=== PATIENT | female | born 1990 | race Caucasian/White ===

== ENCOUNTER 2018-10-21 19:42 | Day surgery (SDC) | payer OTHER ==
[2018-10-21 20:04] VITALS: BMI 33.2
[2018-10-21 20:31] LABS: #Basophils 0.1 thou/uL (0.0-0.2); #Eosinphils 0.1 thou/uL (0.0-0.7); #Lymphocytes 2.3 thou/uL (1.20-3.40); #Monocytes 0.5 thou/uL (0.11-0.59); #Neutrophils 6.5 thou/uL (1.40-6.50); %Basophils 0.9 % (0.0-1.0); %Lymphocytes 24.3 % (21.0-51.0); %Monocytes 5.1 % (0.0-10.0); %Neutrophils 68.8 % (42.0-75.0); Hemoglobin 11.2 g/dL (12.0-16.0); Mean Corpuscular HGB CONC 34.5 g/dL (32.0-36.0); Mean Corpuscular Hemoglobin 30.8 pg (27.0-31.0); Mean Corpuscular Volume 89.1 fL (78.0-98.0); Mean Platelet Volume 8.9 fL (7.4-10.4); Platelet Count 171 thou/uL (130-400); RBC Distribution Width 11.8 % (11.5-14.5); Red Blood Cell (RBC) Count 3.63 mill/uL (4.20-5.40); White Blood Cell (WBC) Count 9.4 thou/uL (4.8-10.8)
[2018-10-21 20:50] LABS: ALT (SGPT) 32 U/L (8-55); AST (SGOT) 23 U/L (5-34); Albumin 3.4 g/dL (3.5-5.0); Alkaline Phosphatase 131 U/L (40-150); Anion Gap 13 mmol/L (10-20); BUN (Urea Nitrogen) 12 mg/dL (7.0-18.7); Bilirubin, Total 1.3 mg/dL (0.2-1.2); Calc. Creatinine Clearance 184 mL/min (70-130); Calcium 8.9 mg/dL (7.8-10.44); Carbon Dioxide 21 mmol/L (22-29); Chloride 105 mmol/L (98-107); Estimated GFR-MDRD Greater than 90; Globulin 3.4 g/dL (2.4-3.5); Glucose 109 mg/dL (70-105); Potassium 3.6 mmol/L (3.5-5.1); Protein, Total 6.8 g/dL (6.0-8.3); Sodium 135 mmol/L (136-145)
== END 2018-10-21 21:17 | disposition home or self-care (01) ==
LOC: L&D/OP 19:42
PROVIDERS: ATTEND Obstetrics & Gynecology
DX: Z34.90 Encounter for supervision of normal pregnancy, unspecified, unspecified trimester (principal)
CPT/HCPCS: 36415; 80053; 85025; 99283

== ENCOUNTER 2018-10-22 06:00 | Inpatient (IN) | payer OTHER ==
[2018-10-22] MEDS ORDERED: Acetaminophen 500 MG TAB PO PRN (07:12)
[2018-10-22] MEDS ORDERED: HYDROcodone/Acetaminophen 5/325 mg Tablet PO PRN ×4 (07:12→17:54)
[2018-10-22] MEDS ORDERED: Butorphanol Tartrate 1 MG/ML VIAL SLOW IVP PRN (07:12)
[2018-10-22] MEDS ORDERED: NS / Oxytocin 40 units/1000ml 1,000 ML IV PRN (07:12)
[2018-10-22] MEDS ORDERED: NS w/ Oxytocin 10 units 500 ML IV SCH ×2 (07:12)
[2018-10-22] MEDS ORDERED: Promethazine HCl 25 MG/ML VIAL IM PRN ×2 (07:12→11:35)
[2018-10-22] MEDS ORDERED: Lidocaine 1% (PF) 30 ML VIAL SC PRN (07:12)
[2018-10-22] MEDS ORDERED: Ondansetron PF 4 MG/2 ML Vial IVP PRN ×3 (07:12→17:54)
[2018-10-22] MEDS ORDERED: hydrALAZINE 20 MG/ML VIAL SLOW IVP PRN ×2 (07:12→17:54)
[2018-10-22] MEDS ORDERED: Ibuprofen 800 MG TAB PO PRN (07:12)
[2018-10-22] MEDS: Lactated Ringer's 1,000 ML IV SCH ×2 (07:30→11:41)
[2018-10-22 07:47] LABS: Hemoglobin 11.6 g/dL (12.0-16.0); Mean Corpuscular HGB CONC 33.9 g/dL (32.0-36.0); Mean Corpuscular Hemoglobin 29.9 pg (27.0-31.0); Mean Corpuscular Volume 88.2 fL (78.0-98.0); Mean Platelet Volume 9.3 fL (7.4-10.4); Platelet Count 182 thou/uL (130-400); White Blood Cell (WBC) Count 8.9 thou/uL (4.8-10.8)
--- NOTE | 2018-10-22 07:54 | PDOC.LDHP ---
Labor and Delivery H&P Chief complaint: scheduled induction (for preeclampsia without severe features) HPI: Pt is a 28yo @ 37 here for IOL for preeclampsia without severe features. Current gestational age (weeks): 37 Due date: 11/12/18 Dating criteria: first trimester ultrasound Grav: 2 Para: 1 OB History Details: mild preeclampsia this Current complications: preeclampsia without severe features Abnormal US findings: No Current medications: pre-nathanael vitamins Previous surgical history: appendectomy, other (ortho) Allergies/Adverse Reactions: Allergies Allergy/AdvReac Type Severity Reaction Status Date / Time No Known Allergies Allergy Verified 10/22/18 08:04 Social history: none - Physical Exam Abnormal vital signs: BP 140/90s General: NAD Heart: RRR Lungs: CTAB Abdomen: gravid Extremeties: no edema FHT: category 1 - Vaginal Exam cm dilated: 2 (clear fluid on AROM) Effacement: 25% Station: -2 - OB Labs Blood type: B RH: positive Antibody Screen: negative HIV: negative RPR: negative HEPSAg: negative 1 hour GCT: positive 3 hour GTT: normal GBS: negative Urine drug screen: negative Rubella: immune - Assessment L&D Assessment: medically indicated induction (for preeclampsia without severe features) - Plan Plan: admit to L&D, cervical ripening, labor augmentation if indicated, informed consent obtained, anesthesia consult for pain management -: A/P: Preeclampsia without severe features on admission. Plan for IOL, magnesium if severe criteria met during IOL.
[2018-10-22 08:09] VITALS: BMI 33.6
[2018-10-22 08:24] LABS: Syphilis Antibody Nonreactive (Nonreactive); Syphilis Antibody Index 0.03 S/CO (<1.00 Non-Reactive)
[2018-10-22 08:25] LABS: Hep B Surf Ag Non-Reactive S/CO (NonReactive)
[2018-10-22 08:59] LABS: ALT (SGPT) 33 U/L (8-55); AST (SGOT) 27 U/L (5-34); Albumin 3.5 g/dL (3.5-5.0); Alkaline Phosphatase 137 U/L (40-150); Anion Gap 16 mmol/L (10-20); BUN (Urea Nitrogen) 10 mg/dL (7.0-18.7); Bilirubin, Total 1.3 mg/dL (0.2-1.2); Calc. Creatinine Clearance 205 mL/min (70-130); Calcium 8.7 mg/dL (7.8-10.44); Carbon Dioxide 17 mmol/L (22-29); Chloride 106 mmol/L (98-107); Estimated GFR-MDRD Greater than 90; Globulin 3.1 g/dL (2.4-3.5); Glucose 140 mg/dL (70-105); Potassium 3.9 mmol/L (3.5-5.1); Protein, Total 6.6 g/dL (6.0-8.3); Sodium 135 mmol/L (136-145)
[2018-10-22] MEDS ORDERED: Fentanyl 4 mcg/Bup 0.1% Cadd 100 ML ONE (11:01)
[2018-10-22] MEDS ORDERED: Bupivacaine/Epinephrine 0.25% 30 ML VIAL ONE (11:11)
[2018-10-22] MEDS ORDERED: diphenhydrAMINE 50 MG/ML VIAL IVP PRN (11:35)
[2018-10-22] MEDS ORDERED: ePHEDrine/0.9% NaCl/PF SYRINGE 50 mg/10 ml SLOW IVP PRN (11:35)
[2018-10-22] MEDS ORDERED: Lactated Ringer's 500 ML IV PRN (11:35)
[2018-10-22] MEDS ORDERED: Acetaminophen 325 MG TAB PO PRN (11:35)
[2018-10-22] MEDS ORDERED: Naloxone HCl 0.4 mg/ml Vial IVP PRN ×2 (11:35)
[2018-10-22] MEDS ORDERED: Fentanyl 4 mcg/Bupivacaine 0.1% Cassette 100 ML EPIDURAL SCH (11:45)
[2018-10-22] MEDS ORDERED: Communication Order-Pharmacy FS SCH (11:45)
--- NOTE | 2018-10-22 12:19 | PDOC.LDPN ---
Labor & Delivery Progress Note - Subjective Subjective: comfortable - Objective Vital signs reviewed and normal: yes General: resting Uterine fundus: non tender Dilation: 5 Effacement: 50% Station: 0 FHT: category 1 AROM: clear fluid - Assessment (1) Preeclampsia Code(s): O14.90 - UNSPECIFIED PRE-ECLAMPSIA, UNSPECIFIED TRIMESTER Current Visit: Yes Status: Acute (2) 37 weeks gestation of Code(s): Z3A.37 - 37 WEEKS GESTATION OF Current Visit: Yes Status : Acute Plan: continue plan of care -: A/P: Transitioning to active labor, FHT reassuring.
--- NOTE | 2018-10-22 14:45 | PDOC.OPDEL ---
OB Operative/Delivery Note Delivery Dr/Surgeon: Aaron Pre-Delivery Diagnosis: medically indicated induction (preeclampsia without severe features) Procedure/Post Delivery Dx: spontaneous vaginal delivery Weeks gestation: 37 - Additional Findings/Plan Placenta delivered: spontaneous Repaired Obstetrical Laceration: none Estimated blood loss: 250ml Compilations/Other Findings: lose nuchal noted, calcified placenta Post delivery plan: routine recovery
[2018-10-22] MEDS ORDERED: Bisacodyl 10 MG SUPP PR PRN (17:54)
[2018-10-22] MEDS ORDERED: Milk Of Magnesia 30 ML UDCUP PO PRN (17:54)
[2018-10-22] MEDS ORDERED: Lanolin Ointment 7 GM TUBE TOP PRN (17:54)
[2018-10-22] MEDS ORDERED: diphenhydrAMINE 25 MG CAP PO PRN (17:54)
[2018-10-22] MEDS ORDERED: Benzocaine-Menthol 82.5 ML CAN TOP PRN (17:54)
[2018-10-22] MEDS ORDERED: Ferrous Sulfate 325 MG TAB PO SCH (18:45)
[2018-10-22] MEDS ORDERED: NS / Oxytocin 40 units/1000ml 1,000 ML IV SCH (18:45)
[2018-10-22] MEDS: Ibuprofen 800 MG TAB PO SCH (21:50)
[2018-10-22] MEDS: Docusate Calcium (SURFAK) 240 MG CAP PO SCH (21:51)
[2018-10-22] MEDS ORDERED: Adacel (T-DAP) 0.5 ML SYRINGE IM ONE (22:00)
[2018-10-23] MEDS: Ibuprofen 800 MG TAB PO SCH ×3 (06:04→22:02)
[2018-10-23] MEDS: Prenatal Vitamin 1 TAB PO SCH (10:13)
[2018-10-23] MEDS: Ferrous Sulfate 325 MG TAB PO SCH ×2 (10:13→17:41)
[2018-10-23] MEDS: Docusate Calcium (SURFAK) 240 MG CAP PO SCH ×2 (10:13→22:02)
--- NOTE | 2018-10-23 12:14 | PDOC.PP ---
Post Progress Note Post Day #: 1 Subjective: doing very well, normal BP, no PIH sx, baby feeding well PO intake tolerated: yes Flatus: yes Ambulation: yes Vital Signs (12 hours) Temp Pulse Resp BP Pulse Ox 10/23/18 11:38 97.3 F L 68 13 123/73 10/23/18 08:30 98 10/23/18 08:00 97.6 F 65 19 122/81 98 10/23/18 03:36 97.6 F 75 18 122/74 97 Weight Weight 215 lb - Physical Examination General: NAD Respiratory: non-labored breathing Abdominal: no distention Fundus firm & at: below umb Skin: no rash Neurological: no gross focal deficits Psychiatric: A&Ox3, normal affect Result Diagrams: 10/22/18 07:35 10/22/18 07:35 Additional Labs: Post Labs Blood Type B POSITIVE 10/22/18 07:35 Hep Bs Antigen Non-Reactive S/CO (NonReactive) 10/22/18 07:35 (1) Preeclampsia Code(s): O14.90 - UNSPECIFIED PRE-ECLAMPSIA, UNSPECIFIED TRIMESTER Status: Acute (2) 37 weeks gestation of Code(s): Z3A.37 - 37 WEEKS GESTATION OF Status: Acute - Assessment/Plan PPD1 doing well w sp IOL for preeclampsia without severe features, BP WNL since delivery/approx 24 hrs. Pt request DC home today if baby DC.
[2018-10-24] MEDS: Ibuprofen 800 MG TAB PO SCH ×2 (05:57→13:42)
[2018-10-24 08:05] VITALS: BP 116/59; TEMP 98.2
[2018-10-24] MEDS: Ferrous Sulfate 325 MG TAB PO SCH (08:51)
[2018-10-24] MEDS: Prenatal Vitamin 1 TAB PO SCH (09:07)
[2018-10-24] MEDS: Docusate Calcium (SURFAK) 240 MG CAP PO SCH (09:08)
--- NOTE | 2018-10-24 10:07 | PDOC.PP ---
Post Progress Note Post Day #: 2 Subjective: doing well, ready go go home, waiting baby DC PO intake tolerated: yes Flatus: yes Ambulation: yes Vital Signs (12 hours) Temp Pulse Resp BP Pulse Ox 10/24/18 08:04 98.2 F 66 20 116/59 L 100 10/24/18 03:42 98.0 F 72 16 108/71 10/23/18 23:50 98.1 F 75 18 138/61 Weight Weight 215 lb - Physical Examination General: NAD Respiratory: non-labored breathing Neurological: no gross focal deficits Psychiatric: A&Ox3, normal affect Result Diagrams: 10/22/18 07:35 10/22/18 07:35 Additional Labs: Post Labs Blood Type B POSITIVE 10/22/18 07:35 Hep Bs Antigen Non-Reactive S/CO (NonReactive) 10/22/18 07:35 (1) Preeclampsia Code(s): O14.90 - UNSPECIFIED PRE-ECLAMPSIA, UNSPECIFIED TRIMESTER Status: Acute (2) 37 weeks gestation of Code(s): Z3A.37 - 37 WEEKS GESTATION OF Status: Acute - Assessment/Plan PPD2 sp IOL for preeclampsia without severe features, normal BP since delivery , home today.
== END 2018-10-24 16:40 | disposition home or self-care (01) | DRG 807 ==
LOC: L&D 06:56 → 3SW 17:28
PROVIDERS: ADMIT Obstetrics & Gynecology; ATTEND Obstetrics & Gynecology
PROC: 10E0XZZ Delivery of Products of Conception, External Approach (ICD-10-PCS; principal; 2018-10-22)
DX: O14.04 Mild to moderate pre-eclampsia, complicating childbirth (principal); Z37.0 Single live birth; O43.893 Other placental disorders, third trimester; O69.81X0 Labor and delivery complicated by cord around neck, without compression, not applicable or unspecified; Z3A.37 37 weeks gestation of pregnancy
CPT/HCPCS: 36415; 51702; 80053; 85027; 86780; 86850; 86900; 86901; 87340; J2001; J2590